=== PATIENT | female | born 1995 | race Caucasian/White ===

== ENCOUNTER 2024-05-10 17:11 | Emergency (ER) | payer MEDICAID ==
[~2024-05-10] VITALS: Ht 167.6 cm; Wt 63.0 kg
[2024-05-10] MEDS ORDERED: MUPIROCIN OINT 2% 22 GM TUBE ONE (18:12)
[2024-05-10] MEDS: MUPIROCIN OINT 2% 22 GM TUBE TP ONE (18:13)
[2024-05-10] MEDS ORDERED: MUPI15CR TP (18:57)
[2024-05-10] MEDS ORDERED: CEPH500C2 PO (18:57)
[2024-05-10 19:13] VITALS: BP 131/66; TEMP 98.6; O2SAT 100
== END 2024-05-10 19:13 | disposition home or self-care (01) ==
LOC: ER 17:21
DX: T81.31XA Disruption of external operation (surgical) wound, not elsewhere classified, initial encounter (principal); N61.0 Mastitis without abscess; Z60.2 Problems related to living alone; Y83.8 Other surgical procedures as the cause of abnormal reaction of the patient, or of later complication, without mention of misadventure at the time of the procedure; Y92.89 Other specified places as the place of occurrence of the external cause

== ENCOUNTER 2025-02-16 10:42 | Emergency (ER) | payer MEDICAID, OTHER ==
[~2025-02-16] VITALS: Ht 167.6 cm; Wt 64.0 kg
[~2025-02-16 10:42] MED LIST: CEPH500C2 PO; MUPI15CR TP
[2025-02-16 12:05] LABS: APPEARANCE,URINE CLEAR (CLEAR); BILIRUBIN,URINE NEGATIVE (NEGATIVE); BLOOD, URINE NEGATIVE Ery/uL (NEGATIVE); COLOR,URINE YELLOW (YELLOW); KETONES,URINE 1+ mg/dL (NEGATIVE); LEUKOCYTE ESTERASE ,URINE NEGATIVE (NEGATIVE); NITRITE, URINE NEGATIVE (NEGATIVE); PROTEIN,URINE NEGATIVE (NEGATIVE); UGLUCOSE NEGATIVE (NEGATIVE); UROBILINOGEN,URINE 0.2 EU/dL (0.2)
[2025-02-16 12:06] LABS: PREGNANCY TEST URINE QUAL NEGATIVE (NEGATIVE)
[2025-02-16 12:17] LABS: BASOPHILS % (AUTO) 0.4 % (0.0-2.0); EOSINOPHILS # (AUTO) 0.1 K/uL (0.0-0.7); EOSINOPHILS % (AUTO) 1.1 % (0.0-6.0); HEMATOCRIT 37 % (33-45); HEMOGLOBIN 12.5 g/dL (11.5-14.8); LYMPHOCYTES # (AUTO) 1.7 K/uL (0.8-4.8); LYMPHOCYTES % (AUTO) 33.4 % (20.0-44.0); MEAN CORPUSCULAR HEMOGLOBIN 31 PG (26.0-33.0); MEAN CORPUSCULAR HGB CONC 34 g/dl (31.0-36.0); MEAN CORPUSCULAR VOLUME 92 fL (82-100); MONOCYTES # (AUTO) 0.3 K/uL (0.1-1.30); MONOCYTES % (AUTO) 6.5 % (2.0-12.0); NEUTROPHILS # (AUTO) 2.9 K/uL (1.8-8.9); NEUTROPHILS % (AUTO) 58.6 % (43.0-81.0); PLATELET COUNT (AUTO) 165 K/uL (150-450); RED BLOOD CELL COUNT(AUTO) 4.08 MIL/uL (4.0-5.2); RED CELL DISTRIBUTION WIDTH 12.8 % (11.5-15.0)
[2025-02-16 12:25] LABS: CALCIUM, SERUM 8.4 mg/dL (8.5-10.1); CREATININE 0.7 mg/dL (0.6-1.3); POTASSIUM 4.5 mmol/L (3.5-5.1)
[2025-02-16 12:31] LABS: ALBUMIN 3.7 g/dL (3.4-5.0); BILIRUBIN,DIRECT 0.1 mg/dL (0.0-0.2); BILIRUBIN,TOTAL 0.3 mg/dL (0.2-1.0); TOTAL PROTEIN, SERUM 6.7 g/dL (6.4-8.2)
[2025-02-16] MEDS ORDERED: IV NS 0.9% 250 ML IV ONE (13:01)
[2025-02-16] MEDS ORDERED: IOHEXOL-300 100 ML VIAL IV ONE (13:01)
[2025-02-16] MEDS ORDERED: CT SWABBABLE VALVE TRANS SET 1 EA INFUS.SET MC ONE (13:01)
[2025-02-16 13:04] LABS: ADD URINE CULTURE YES; BACTERIA,URINE Many /HPF (None Seen); SQUAMOUS EPITHELIAL CELL,UR Many /HPF (None Seen)
[2025-02-16] MEDS ORDERED: KETOROLAC TROMETHAMINE 15 MG/ML VIAL ONE (15:03)
[2025-02-16] MEDS: KETOROLAC TROMETHAMINE 15 MG/ML VIAL IM ONE (15:10)
[2025-02-16] MEDS: KETOROLAC TROMETHAMINE INJ 30 MG/ML VIAL IV ONE (15:11)
[2025-02-16 15:45] VITALS: BP 103/76; TEMP 98.3; O2SAT 99
== END 2025-02-16 15:46 | disposition home or self-care (01) ==
LOC: ER 10:47
DX: R10.31 Right lower quadrant pain (principal); K59.00 Constipation, unspecified; G89.29 Other chronic pain; Z60.2 Problems related to living alone; Z79.899 Other long term (current) drug therapy
CPT/HCPCS: 99285; 74177; 96372; 85025; 80048; 87086; 83690; 80076; 84703; 81001; 36415; J1885; J7050; Q9967

== ENCOUNTER 2025-07-17 19:40 | Emergency (ER) | payer OTHER ==
[~2025-07-17] VITALS: Ht 167.6 cm; Wt 57.6 kg
[2025-07-17] MEDS: IV NS 0.9% 1,000 ML BAG IV ONE (20:38)
[2025-07-17] MEDS ORDERED: ONDANSETRON HCL/PF 4 MG/2 ML VIAL ONE (20:38)
[2025-07-17] MEDS: ONDANSETRON HCL/PF 4 MG/2 ML VIAL IVP ONE (20:39)
[2025-07-17 20:43] LABS: PLATELET COUNT (AUTO) 230 K/uL (150-450); RED BLOOD CELL COUNT(AUTO) 4.76 MIL/uL (4.0-5.2); RED CELL DISTRIBUTION WIDTH 13.0 % (11.5-15.0); WHITE BLOOD COUNT (AUTO) 9.1 K/uL (4.3-11.0)
[2025-07-17 20:50] LABS: CALCIUM, SERUM 9.2 mg/dL (8.5-10.1); CREATININE 0.6 mg/dL (0.6-1.3); SODIUM SERUM 137.0 mmol/L (136-145); UREA NITROGEN, BLOOD 10.0 mg/dL (7-18)
[2025-07-17] MEDS ORDERED: ONDA4TAB5 PO (21:47)
[2025-07-17 21:56] VITALS: BP 122/77; TEMP 98.5; O2SAT 97
== END 2025-07-17 21:57 | disposition home or self-care (01) ==
LOC: ER 19:45
DX: R00.2 Palpitations (principal); R06.02 Shortness of breath; R07.9 Chest pain, unspecified; R11.2 Nausea with vomiting, unspecified
CPT/HCPCS: 99285; 96374; 71045; 96361; 93005; 85025; 80048; 36415; J2405; J7030